=== PATIENT | female | born 1975 | race African-American/Black ===

== ENCOUNTER 2016-08-17 20:27 | Emergency (ER) | payer OTHER ==
[~2016-08-17] VITALS: Ht 167.6 cm; Wt 91.0 kg
[~2016-08-17 20:27] MED LIST: AMOXICILLIN500 MG OR; ANTIVERT25 MG PO; CIPRO500 MG OR; CIPRO500 MG PO; CIPROFLOXACN500 MG PO; DIFLUCAN150 MG OR; FLAGYL500 MG PO; HYDROCHLOR12.5 MG/CA PO; IRON325 M1 PO; LISINOP/HCTZ1 TAB PO; MONISTAT1 VA; MOTRIN800 MG PO; NO HOME MEDS; PYRIDIUM200 MG OR; ROCEPHIN 2250 MG/VIA IM; ULTRAM50 M1 PO; ULTRAM50 MG OR; ZITHROMAX500 MG PO; [UNRECOGNIZED DRUG - REMARK]
[2016-08-17] MEDS ORDERED: FIORICET PO (21:38)
[2016-08-17 21:42] VITALS: BP 150/102
[2016-08-18] MEDS ORDERED: BENTYL20 MG PO (15:05)
[2016-08-18] MEDS ORDERED: ZOFRAN ODT4 MG PO (15:05)
[2016-08-18] MEDS ORDERED: NEXIUM40 M1 PO (15:40)
== END 2016-08-17 21:47 | disposition home or self-care (01) | DRG 103 ==
LOC: ED 20:27
DX: R51 Headache (principal); F41.1 Generalized anxiety disorder; F43.0 Acute stress reaction

== ENCOUNTER 2016-08-18 12:56 | Emergency (ER) | payer OTHER ==
[~2016-08-18] VITALS: Ht 167.6 cm; Wt 91.0 kg
[~2016-08-18 12:56] MED LIST changes: +FIORICET PO
[2016-08-18 13:52] LABS: HEMATOCRIT 27.3 % (37.0-47.0); HEMOGLOBIN 8.6 g/dl (12.0-16.0); IMMATURE GRANULOCYTES 0.4 % (0.0-1.0); MEAN CELL VOLUME 64.2 fL CALC (80.0-100.0); MEAN CORPUSCULAR HGB 20.2 pG CALC (26.0-32.0); MEAN CORPUSCULAR HGB CONC 31.5 g/L CALC (32.0-36.0); NEUT# 5.53 thou/uL (2.00-7.15); RED BLOOD COUNT 4.25 mill/uL (4.20-5.60); RED CELL DISTRI WIDTH 20.6 % (11.5-15.5)
[2016-08-18 13:56] LABS: URINE BILIRUBIN - DIPSTICK NEGATIVE (NEGATIVE); URINE BLOOD DIPSTICK NEGATIVE (NEGATIVE); URINE CLARITY CLEAR; URINE COLOR YELLOW; URINE GLUCOSE - DIPSTICK NEGATIVE (NEGATIVE); URINE KETONE NEGATIVE (NEGATIVE); URINE LEUK ESTERASE NEGATIVE (NEGATIVE); URINE NITRITE - DIPSTICK NEGATIVE (Negative); URINE PH 5.5 (4.5-8.0); URINE PROTEIN - DIPSTICK NEGATIVE (NEG-TRACE); URINE SPECIFIC GRAVITY >=1.030; URINE UROBILINOGEN - DIPSTICK 0.2 E.U./dL (0.2)
[2016-08-18 14:04] LABS: ALBUMIN 4.4 g/dL (3.2-5.0); ALKALINE PHOSPHATASE 68 u/l (38-126); AMYLASE 73 u/l (30-110); ANION GAP 17 (6-22 (CALC)); BILIRUBIN, TOTAL 0.5 mg/dL (0.0-1.4); BUN 12 mg/dL (7-17); BUN/CREATININE RATIO 17 (12-20 (CALC)); CALCIUM 9.4 mg/dL (8.4-10.2); CARBON DIOXIDE 28 mmol/l (22-30); CHLORIDE 101 mmol/l (95-108); CREATININE 0.7 mg/dL (0.5-1.0); GFR > 60 ML/MIN (>=60 (CALC)); GFR FOR AFR.AMER. > 60 ML/MIN (>=60 (CALC)); GLUCOSE 91 mg/dL (65-105); LIPASE 40 u/l (23-300); POTASSIUM 4.1 mmol/l (3.5-5.1); SGOT/AST 27 u/l (14-36); SGPT/ALT 23 u/l (9-52); SODIUM 142 mmol/l (137-146); TOTAL PROTEIN 8.5 g/dL (6.3-8.2)
[2016-08-18 14:15] LABS: MYOGLOBIN 26 ng/mL (0 - 62)
[2016-08-18] MEDS ORDERED: ZOFRAN ODT4 MG PO (15:05)
[2016-08-18] MEDS ORDERED: BENTYL20 MG PO (15:05)
[2016-08-18] MEDS ORDERED: NEXIUM40 M1 PO (15:40)
[2016-08-18 15:43] VITALS: BP 164/83
== END 2016-08-18 15:51 | disposition home or self-care (01) | DRG 392 ==
LOC: ED 12:56
PROVIDERS: Emergency Medicine
DX: R10.13 Epigastric pain (principal); R11.0 Nausea
CPT/HCPCS: S0164

== ENCOUNTER 2016-08-24 03:12 | Observation (INO) | payer OTHER ==
[~2016-08-24] VITALS: Ht 167.6 cm; Wt 91.8 kg
[~2016-08-24 03:12] MED LIST changes: +BENTYL20 MG PO; +NEXIUM40 M1 PO; +ZOFRAN ODT4 MG PO
[2016-08-24 04:11] LABS: ALBUMIN 4.3 g/dL (3.2-5.0); ALKALINE PHOSPHATASE 70 u/l (38-126); ANION GAP 14 (6-22 (CALC)); BILIRUBIN, TOTAL 0.4 mg/dL (0.0-1.4); BUN 14 mg/dL (7-17); BUN/CREATININE RATIO 19 (12-20 (CALC)); CALCIUM 9.5 mg/dL (8.4-10.2); CARBON DIOXIDE 27 mmol/l (22-30); CHLORIDE 101 mmol/l (95-108); CREATININE 0.7 mg/dL (0.5-1.0); GFR > 60 ML/MIN (>=60 (CALC)); GFR FOR AFR.AMER. > 60 ML/MIN (>=60 (CALC)); GLUCOSE 99 mg/dL (65-105); POTASSIUM 4.6 mmol/l (3.5-5.1); SGOT/AST 19 u/l (14-36); SGPT/ALT 22 u/l (9-52); SODIUM 138 mmol/l (137-146); TOTAL PROTEIN 8.3 g/dL (6.3-8.2)
[2016-08-24 04:13] LABS: HEMATOCRIT 28.6 % (37.0-47.0); HEMOGLOBIN 8.9 g/dl (12.0-16.0); IMMATURE GRANULOCYTES 0.4 % (0.0-1.0); MEAN CELL VOLUME 64.6 fL CALC (80.0-100.0); MEAN CORPUSCULAR HGB 20.1 pG CALC (26.0-32.0); MEAN CORPUSCULAR HGB CONC 31.1 g/L CALC (32.0-36.0); NEUT# 5.26 thou/uL (2.00-7.15); RED BLOOD COUNT 4.43 mill/uL (4.20-5.60); RED CELL DISTRI WIDTH 20.6 % (11.5-15.5)
[2016-08-24 04:23] LABS: MYOGLOBIN 18 ng/mL (0 - 62)
[2016-08-24 07:15] VITALS: BP 147/105
[2016-08-24 07:30] VITALS: BP 156/89
[2016-08-24 07:45] VITALS: BP 149/90
[2016-08-24 08:00] VITALS: BP 134/87
[2016-08-24 10:00] VITALS: BP 141/79
[2016-08-24] MEDS ORDERED: ASPIRIN LOW DOS81 M1 PO (13:41)
== END 2016-08-24 14:14 | disposition home or self-care (01) | DRG 313 ==
LOC: ENPENDDIS → ED 03:12 → ED-I 06:30 → ED 06:46 → ICU 06:47
PROVIDERS: Emergency Medicine; Internal Medicine; ADMIT Internal Medicine; ATTEND Internal Medicine
DX: R07.89 Other chest pain (principal); I10 Essential (primary) hypertension; D50.9 Iron deficiency anemia, unspecified; F43.9 Reaction to severe stress, unspecified; Z82.49 Family history of ischemic heart disease and other diseases of the circulatory system

== ENCOUNTER 2016-12-12 20:45 | Emergency (ER) | payer OTHER ==
[~2016-12-12] VITALS: Ht 152.4 cm; Wt 94.4 kg
[~2016-12-12 20:45] MED LIST changes: +ASPIRIN LOW DOS81 M1 PO
[2016-12-12 21:22] LABS: HEMATOCRIT 25.7 % (37.0-47.0); HEMOGLOBIN 8.2 g/dl (12.0-16.0); IMMATURE GRANULOCYTES 0.4 % (0.0-1.0); MEAN CELL VOLUME 63.5 fL CALC (80.0-100.0); MEAN CORPUSCULAR HGB 20.2 pG CALC (26.0-32.0); MEAN CORPUSCULAR HGB CONC 31.9 g/L CALC (32.0-36.0); NEUT# 6.75 thou/uL (2.00-7.15); RED BLOOD COUNT 4.05 mill/uL (4.20-5.60)
[2016-12-12 21:34] LABS: ALBUMIN 4.7 g/dL (3.2-5.0); ALKALINE PHOSPHATASE 69 u/l (38-126); ANION GAP 17 (6-22 (CALC)); BILIRUBIN, TOTAL 0.5 mg/dL (0.0-1.4); BUN 12 mg/dL (7-17); BUN/CREATININE RATIO 16 (12-20 (CALC)); CALCIUM 9.7 mg/dL (8.4-10.2); CARBON DIOXIDE 28 mmol/l (22-30); CHLORIDE 98 mmol/l (95-108); CREATININE 0.8 mg/dL (0.5-1.0); GFR > 60 ML/MIN (>=60 (CALC)); GFR FOR AFR.AMER. > 60 ML/MIN (>=60 (CALC)); GLUCOSE 95 mg/dL (65-105); POTASSIUM 3.7 mmol/l (3.5-5.1); SGOT/AST 19 u/l (14-36); SGPT/ALT 24 u/l (9-52); SODIUM 138 mmol/l (137-146); TOTAL PROTEIN 8.5 g/dL (6.3-8.2)
[2016-12-12 21:46] LABS: MYOGLOBIN 30 ng/mL (0 - 62)
[2016-12-12] MEDS ORDERED: INDOCIN25 MG PO (21:59)
[2016-12-12] MEDS ORDERED: KEFLEX500 M1 PO (21:59)
[2016-12-12 22:29] VITALS: BP 114/60
== END 2016-12-12 22:40 | disposition home or self-care (01) | DRG 313 ==
LOC: ED 20:45
PROVIDERS: Emergency Medicine
DX: R07.9 Chest pain, unspecified (principal); R09.1 Pleurisy

== ENCOUNTER 2016-12-22 08:29 | Emergency (ER) | payer OTHER ==
[~2016-12-22] VITALS: Ht 167.6 cm; Wt 90.0 kg
[~2016-12-22 08:29] MED LIST changes: +INDOCIN25 MG PO; +KEFLEX500 M1 PO
[2016-12-22 09:08] LABS: URINE BILIRUBIN - DIPSTICK NEGATIVE (NEGATIVE); URINE BLOOD DIPSTICK TRACE-LYSED (NEGATIVE); URINE CLARITY CLEAR; URINE COLOR YELLOW; URINE GLUCOSE - DIPSTICK NEGATIVE (NEGATIVE); URINE KETONE NEGATIVE (NEGATIVE); URINE LEUK ESTERASE TRACE (Negative); URINE NITRITE - DIPSTICK NEGATIVE (Negative); URINE PROTEIN - DIPSTICK NEGATIVE (NEG-TRACE); URINE SPECIFIC GRAVITY 1.025; URINE UROBILINOGEN - DIPSTICK 0.2 E.U./dL (0.2)
[2016-12-22 09:44] VITALS: BP 138/75
== END 2016-12-22 09:55 | disposition home or self-care (01) | DRG 696 ==
LOC: ED 08:29
PROVIDERS: Family Medicine
DX: R30.0 Dysuria (principal); I10 Essential (primary) hypertension; B37.3 Candidiasis of vulva and vagina

== ENCOUNTER 2017-02-07 15:34 | Emergency (ER) | payer SELFPAY ==
[~2017-02-07] VITALS: Ht 167.6 cm; Wt 93.4 kg
[2017-02-07 16:21] LABS: URINE BILIRUBIN - DIPSTICK NEGATIVE (NEGATIVE); URINE BLOOD DIPSTICK TRACE-INTACT (NEGATIVE); URINE CLARITY CLEAR; URINE COLOR YELLOW; URINE GLUCOSE - DIPSTICK NEGATIVE (NEGATIVE); URINE KETONE NEGATIVE (NEGATIVE); URINE LEUK ESTERASE NEGATIVE (NEGATIVE); URINE NITRITE - DIPSTICK NEGATIVE (Negative); URINE PH 5.5 (4.5-8.0); URINE PROTEIN - DIPSTICK NEGATIVE (NEG-TRACE); URINE SPECIFIC GRAVITY >=1.030; URINE UROBILINOGEN - DIPSTICK 0.2 E.U./dL (0.2)
[2017-02-07 16:23] LABS: HCG SERUM/URINE (NEG/POS) NEGATIVE (NEGATIVE); HEMOGLOBIN 8.5 g/dl (12.0-16.0); IMMATURE GRANULOCYTES 0.5 % (0.0-1.0); MEAN CELL VOLUME 62.9 fL CALC (80.0-100.0); MEAN CORPUSCULAR HGB 19.8 pG CALC (26.0-32.0); MEAN CORPUSCULAR HGB CONC 31.5 g/L CALC (32.0-36.0); NEUT# 6.13 thou/uL (2.00-7.15); RED BLOOD COUNT 4.29 mill/uL (4.20-5.60); RED CELL DISTRI WIDTH 19.9 % (11.5-15.5)
[2017-02-07 16:37] LABS: ALBUMIN 4.6 g/dL (3.2-5.0); ALKALINE PHOSPHATASE 71 u/l (38-126); ANION GAP 18 (6-22 (CALC)); BILIRUBIN, TOTAL 0.7 mg/dL (0.0-1.4); BUN 10 mg/dL (7-17); BUN/CREATININE RATIO 13 (12-20 (CALC)); CARBON DIOXIDE 25 mmol/l (22-30); CHLORIDE 101 mmol/l (95-108); CREATININE 0.7 mg/dL (0.5-1.0); GFR > 60 ML/MIN (>=60 (CALC)); GFR FOR AFR.AMER. > 60 ML/MIN (>=60 (CALC)); GLUCOSE 89 mg/dL (65-105); POTASSIUM 4.5 mmol/l (3.5-5.1); SGOT/AST 18 u/l (14-36); SGPT/ALT 30 u/l (9-52); SODIUM 141 mmol/l (137-146); TOTAL PROTEIN 8.4 g/dL (6.3-8.2)
[2017-02-07] MEDS ORDERED: MOTRIN800 MG PO (17:46)
[2017-02-07] MEDS ORDERED: TRAMADOL HYDROC50 MG PO (17:46)
[2017-02-07] MEDS ORDERED: METRONIDAZOL500 MG PO (17:52)
[2017-02-07] MEDS ORDERED: DOXYCYC MONO100 M1 PO (17:52)
[2017-02-07 18:36] VITALS: BP 151/77
== END 2017-02-07 18:39 | disposition home or self-care (01) | DRG 759 ==
LOC: ED 15:34
PROVIDERS: Emergency Medicine
DX: N73.9 Female pelvic inflammatory disease, unspecified (principal); R10.2 Pelvic and perineal pain; R30.0 Dysuria; R50.9 Fever, unspecified

== ENCOUNTER 2017-03-05 08:36 | Emergency (ER) | payer SELFPAY ==
[~2017-03-05] VITALS: Ht 167.6 cm; Wt 92.0 kg
[~2017-03-05 08:36] MED LIST changes: +DOXYCYC MONO100 M1 PO; +METRONIDAZOL500 MG PO; +TRAMADOL HYDROC50 MG PO
[2017-03-05 09:41] LABS: HEMATOCRIT 28.1 % (37.0-47.0); HEMOGLOBIN 8.7 g/dl (12.0-16.0); IMMATURE GRANULOCYTES 0.4 % (0.0-1.0); MEAN CORPUSCULAR HGB 19.8 pG CALC (26.0-32.0); NEUT# 4.27 thou/uL (2.00-7.15); RED BLOOD COUNT 4.39 mill/uL (4.20-5.60); RED CELL DISTRI WIDTH 19.9 % (11.5-15.5)
[2017-03-05 09:44] LABS: URINE BILIRUBIN - DIPSTICK NEGATIVE (NEGATIVE); URINE BLOOD DIPSTICK TRACE-LYSED (NEGATIVE); URINE CLARITY CLEAR; URINE COLOR YELLOW; URINE GLUCOSE - DIPSTICK NEGATIVE (NEGATIVE); URINE KETONE NEGATIVE (NEGATIVE); URINE LEUK ESTERASE NEGATIVE (NEGATIVE); URINE NITRITE - DIPSTICK NEGATIVE (Negative); URINE PROTEIN - DIPSTICK NEGATIVE (NEG-TRACE); URINE SPECIFIC GRAVITY >=1.030; URINE UROBILINOGEN - DIPSTICK 0.2 E.U./dL (0.2)
[2017-03-05 10:09] LABS: ALBUMIN 4.5 g/dL (3.2-5.0); ALKALINE PHOSPHATASE 62 u/l (38-126); AMYLASE 51 u/l (30-110); ANION GAP 15 (6-22 (CALC)); BILIRUBIN, TOTAL 0.8 mg/dL (0.0-1.4); BUN 11 mg/dL (7-17); BUN/CREATININE RATIO 16 (12-20 (CALC)); CALCIUM 9.9 mg/dL (8.4-10.2); CARBON DIOXIDE 30 mmol/l (22-30); CHLORIDE 101 mmol/l (95-108); CREATININE 0.7 mg/dL (0.5-1.0); GFR > 60 ML/MIN (>=60 (CALC)); GFR FOR AFR.AMER. > 60 ML/MIN (>=60 (CALC)); GLUCOSE 96 mg/dL (65-105); LIPASE 39 u/l (23-300); SGOT/AST 17 u/l (14-36); SGPT/ALT 26 u/l (9-52); SODIUM 141 mmol/l (137-146); TOTAL PROTEIN 8.1 g/dL (6.3-8.2)
[2017-03-05] MEDS ORDERED: LORTAB 5/3255 MG PO (12:12)
[2017-03-05 13:17] VITALS: BP 142/90
== END 2017-03-05 13:20 | disposition home or self-care (01) | DRG 392 ==
LOC: ED 08:36
PROVIDERS: Emergency Medicine
DX: R10.32 Left lower quadrant pain (principal); I10 Essential (primary) hypertension

== ENCOUNTER 2017-04-11 08:15 | Emergency (ER) | payer SELFPAY ==
[~2017-04-11] VITALS: Ht 167.6 cm; Wt 90.0 kg
[~2017-04-11 08:15] MED LIST changes: +LORTAB 5/3255 MG PO
[2017-04-11 11:01] LABS: URINE BILIRUBIN - DIPSTICK NEGATIVE (NEGATIVE); URINE BLOOD DIPSTICK TRACE-INTACT (NEGATIVE); URINE CLARITY CLEAR; URINE COLOR YELLOW; URINE GLUCOSE - DIPSTICK NEGATIVE (NEGATIVE); URINE KETONE NEGATIVE (NEGATIVE); URINE LEUK ESTERASE NEGATIVE (NEGATIVE); URINE NITRITE - DIPSTICK NEGATIVE (Negative); URINE PROTEIN - DIPSTICK NEGATIVE (NEG-TRACE); URINE SPECIFIC GRAVITY 1.025; URINE UROBILINOGEN - DIPSTICK 0.2 E.U./dL (0.2)
[2017-04-11] MEDS ORDERED: FIORICET PO (11:04)
[2017-04-11 11:13] VITALS: BP 126/84
== END 2017-04-11 11:13 | disposition home or self-care (01) | DRG 103 ==
LOC: ED 08:15
PROVIDERS: Emergency Medicine
DX: G43.909 Migraine, unspecified, not intractable, without status migrainosus (principal); I10 Essential (primary) hypertension

== ENCOUNTER 2017-05-03 02:29 | Emergency (ER) | payer SELFPAY ==
[~2017-05-03] VITALS: Ht 167.6 cm; Wt 94.6 kg
[2017-05-03] MEDS ORDERED: FERRAPLUS 90 PO (02:42)
[2017-05-03] MEDS ORDERED: ULTRAM50 MG PO (03:00)
[2017-05-03 03:30] VITALS: BP 144/83
== END 2017-05-03 03:30 | disposition home or self-care (01) | DRG 558 ==
LOC: ED 02:29
DX: M65.872 Other synovitis and tenosynovitis, left ankle and foot (principal); M79.672 Pain in left foot

== ENCOUNTER 2017-05-17 11:10 | Emergency (ER) | payer SELFPAY ==
[~2017-05-17] VITALS: Ht 167.6 cm; Wt 95.0 kg
[~2017-05-17 11:10] MED LIST changes: +FERRAPLUS 90 PO; +ULTRAM50 MG PO
[2017-05-17 12:07] VITALS: BP 145/98
[2017-05-17 12:30] LABS: URINE BILIRUBIN - DIPSTICK NEGATIVE (NEGATIVE); URINE BLOOD DIPSTICK NEGATIVE (NEGATIVE); URINE COLOR YELLOW; URINE GLUCOSE - DIPSTICK NEGATIVE (NEGATIVE); URINE KETONE NEGATIVE (NEGATIVE); URINE LEUK ESTERASE NEGATIVE (NEGATIVE); URINE NITRITE - DIPSTICK NEGATIVE (Negative); URINE PROTEIN - DIPSTICK NEGATIVE (NEG-TRACE); URINE UROBILINOGEN - DIPSTICK 0.2 E.U./dL (0.2)
[2017-05-17 12:32] LABS: URINE CLARITY CLEAR
== END 2017-05-17 13:10 | disposition home or self-care (01) | DRG 761 ==
LOC: ED 11:10
PROVIDERS: Family Medicine
DX: N89.8 Other specified noninflammatory disorders of vagina (principal)

== ENCOUNTER 2017-11-07 21:13 | Emergency (ER) | payer SELFPAY ==
[~2017-11-07] VITALS: Ht 167.6 cm; Wt 98.5 kg
[2017-11-07 22:22] LABS: HEMATOCRIT 24.5 % (37.0-47.0); HEMOGLOBIN 7.8 g/dl (12.0-16.0); IMMATURE GRANULOCYTES 0.3 % (0.0-1.0); MEAN CELL VOLUME 64.3 fL CALC (80.0-100.0); MEAN CORPUSCULAR HGB 20.5 pG CALC (26.0-32.0); MEAN CORPUSCULAR HGB CONC 31.8 g/L CALC (32.0-36.0); NEUT# 5.96 thou/uL (2.00-7.15); RED BLOOD COUNT 3.81 mill/uL (4.20-5.60); RED CELL DISTRI WIDTH 20.3 % (11.5-15.5); URINE BILIRUBIN - DIPSTICK NEGATIVE (NEGATIVE); URINE BLOOD DIPSTICK NEGATIVE (NEGATIVE); URINE COLOR YELLOW; URINE GLUCOSE - DIPSTICK NEGATIVE (NEGATIVE); URINE KETONE TRACE mg/dL (NEGATIVE); URINE LEUK ESTERASE NEGATIVE (NEGATIVE); URINE NITRITE - DIPSTICK NEGATIVE (Negative); URINE PROTEIN - DIPSTICK TRACE mg/dL (NEG-TRACE)
[2017-11-07 22:23] LABS: URINE CLARITY SL CLOUDY
[2017-11-07 22:31] LABS: ALBUMIN 4.5 g/dL (3.2-5.0); ALKALINE PHOSPHATASE 68 u/l (38-126); ANION GAP 12 (6-22 (CALC)); BILIRUBIN, TOTAL 0.4 mg/dL (0.0-1.4); BUN 14 mg/dL (7-17); BUN/CREATININE RATIO 20 (12-20 (CALC)); CARBON DIOXIDE 26 mmol/l (22-30); CHLORIDE 106 mmol/l (95-108); CREATININE 0.7 mg/dL (0.5-1.0); GFR > 60 ML/MIN (>=60 (CALC)); GFR FOR AFR.AMER. > 60 ML/MIN (>=60 (CALC)); POTASSIUM 4.1 mmol/l (3.5-5.1); SGOT/AST 21 u/l (14-36); SGPT/ALT 25 u/l (9-52); SODIUM 140 mmol/l (137-146); TOTAL PROTEIN 8.5 g/dL (6.3-8.2)
[2017-11-07] MEDS ORDERED: TORADOL PO (23:04)
[2017-11-07 23:15] VITALS: BP 142/89
== END 2017-11-07 23:14 | disposition home or self-care (01) | DRG 761 ==
LOC: ED 21:13
PROVIDERS: Family Medicine
DX: D25.9 Leiomyoma of uterus, unspecified (principal); D64.9 Anemia, unspecified; I10 Essential (primary) hypertension

== ENCOUNTER 2017-11-12 09:41 | Emergency (ER) | payer SELFPAY ==
[~2017-11-12] VITALS: Ht 167.6 cm; Wt 94.5 kg
[~2017-11-12 09:41] MED LIST changes: +TORADOL PO
[2017-11-12] MEDS ORDERED: MOTRIN400 MG PO ×2 (10:06→11:05)
[2017-11-12 11:17] VITALS: BP 136/80
== END 2017-11-12 11:17 | disposition home or self-care (01) | DRG 556 ==
LOC: ED 09:41
DX: M25.571 Pain in right ankle and joints of right foot (principal); I10 Essential (primary) hypertension

== ENCOUNTER 2018-01-01 02:09 | Observation (INO) | payer SELFPAY ==
[~2018-01-01] VITALS: Ht 167.6 cm; Wt 95.7 kg
[~2018-01-01 02:09] MED LIST changes: +MOTRIN400 MG PO
[2018-01-01 03:12] LABS: IMMATURE GRANULOCYTES 0.2 % (0.0-5.0); MEAN CELL VOLUME 63.6 fL CALC (80.0-100.0); MEAN CORPUSCULAR HGB 20.4 pG CALC (26.0-32.0); NEUT# 5.12 thou/uL (2.00-7.15); RED BLOOD COUNT 3.93 mill/uL (4.20-5.60); RED CELL DISTRI WIDTH 19.7 % (11.5-15.5)
[2018-01-01 03:13] LABS: URINE BILIRUBIN - DIPSTICK NEGATIVE (NEGATIVE); URINE BLOOD DIPSTICK NEGATIVE (NEGATIVE); URINE COLOR YELLOW; URINE GLUCOSE - DIPSTICK NEGATIVE (NEGATIVE); URINE KETONE NEGATIVE (NEGATIVE); URINE LEUK ESTERASE NEGATIVE (NEGATIVE); URINE NITRITE - DIPSTICK NEGATIVE (Negative); URINE PH 5.5 (4.5-8.0); URINE PROTEIN - DIPSTICK NEGATIVE (NEG-TRACE); URINE SPECIFIC GRAVITY >=1.030; URINE UROBILINOGEN - DIPSTICK 0.2 E.U./dL (0.2)
[2018-01-01 03:19] LABS: URINE CLARITY CLEAR
[2018-01-01 03:23] LABS: ALBUMIN 4.2 g/dL (3.2-5.0); ALKALINE PHOSPHATASE 70 u/l (38-126); ANION GAP 15 (6-22 (CALC)); BILIRUBIN, TOTAL 0.3 mg/dL (0.0-1.4); BUN 15 mg/dL (7-17); BUN/CREATININE RATIO 21 (12-20 (CALC)); CARBON DIOXIDE 26 mmol/l (22-30); CHLORIDE 106 mmol/l (95-108); CREATININE 0.7 mg/dL (0.5-1.0); GFR > 60 ML/MIN (>=60 (CALC)); GFR FOR AFR.AMER. > 60 ML/MIN (>=60 (CALC)); POTASSIUM 4.2 mmol/l (3.5-5.1); SGOT/AST 21 u/l (14-36); SGPT/ALT 25 u/l (9-52); SODIUM 143 mmol/l (137-146); TOTAL PROTEIN 7.9 g/dL (6.3-8.2)
[2018-01-01 03:36] LABS: MYOGLOBIN 21 ng/mL (0 - 62)
[2018-01-01 05:00] VITALS: BP 110/53
[2018-01-01 07:00] VITALS: BP 109/55
[2018-01-01 07:23] LABS: CHOLESTEROL HDL RATIO 3.1 (<4.4 (CALC))
[2018-01-01 12:00] VITALS: BP 124/65
[2018-01-01 16:23] VITALS: BP 130/64
[2018-01-01] MEDS ORDERED: PREDNISONE10 MG PO (16:48)
== END 2018-01-01 17:45 | disposition home or self-care (01) | DRG 313 ==
LOC: ED 02:09 → ED-I 04:10 → ED 04:27 → ICU 04:28
PROVIDERS: Emergency Medicine; Internal Medicine; ADMIT Internal Medicine; ATTEND Internal Medicine
DX: R07.89 Other chest pain (principal); R68.84 Jaw pain; I10 Essential (primary) hypertension; D50.9 Iron deficiency anemia, unspecified
CPT/HCPCS: J1756

== ENCOUNTER 2018-02-14 10:41 | Emergency (ER) | payer SELFPAY ==
[~2018-02-14] VITALS: Ht 167.6 cm; Wt 91.8 kg
[~2018-02-14 10:41] MED LIST changes: +PREDNISONE10 MG PO
[2018-02-14] MEDS ORDERED: FIORICET PO (11:43)
[2018-02-14 12:00] VITALS: BP 120/54
== END 2018-02-14 12:00 | disposition home or self-care (01) | DRG 103 ==
LOC: ED 10:41
DX: R51 Headache (principal); R11.0 Nausea; H53.8 Other visual disturbances

== ENCOUNTER 2018-03-13 15:34 | Emergency (ER) | payer BC ==
[~2018-03-13] VITALS: Ht 167.6 cm; Wt 92.0 kg
[2018-03-13] MEDS ORDERED: PERCOGESI1 PO (17:21)
[2018-03-13] MEDS ORDERED: TORADOL PO (17:21)
[2018-03-13 17:46] VITALS: BP 133/72
== END 2018-03-13 17:46 | disposition home or self-care (01) | DRG 103 ==
LOC: ED 15:34
DX: R51 Headache (principal); I10 Essential (primary) hypertension

== ENCOUNTER 2018-07-19 08:46 | Emergency (ER) | payer BC ==
[~2018-07-19] VITALS: Ht 167.6 cm; Wt 94.5 kg
[~2018-07-19 08:46] MED LIST changes: +PERCOGESI1 PO
[2018-07-19] MEDS ORDERED: FLEXERIL PO (11:09)
[2018-07-19] MEDS ORDERED: TORADOL PO (11:09)
[2018-07-19 11:12] VITALS: BP 150/88
== END 2018-07-19 11:15 | disposition home or self-care (01) | DRG 103 ==
LOC: ED 08:46
DX: R51 Headache (principal); G89.29 Other chronic pain; I10 Essential (primary) hypertension

== ENCOUNTER 2018-10-05 11:07 | Emergency (ER) | payer BC ==
[~2018-10-05] VITALS: Ht 167.6 cm; Wt 97.0 kg
[~2018-10-05 11:07] MED LIST changes: +FLEXERIL PO
[2018-10-05 12:10] LABS: HEMOGLOBIN 7.8 g/dl (12.0-16.0); IMMATURE GRANULOCYTES 0.4 % (0.0-5.0); MEAN CELL VOLUME 62.8 fL CALC (80.0-100.0); MEAN CORPUSCULAR HGB 19.6 pG CALC (26.0-32.0); MEAN CORPUSCULAR HGB CONC 31.2 g/L CALC (32.0-36.0); NEUT# 4.97 thou/uL (2.00-7.15); RED BLOOD COUNT 3.98 mill/uL (4.20-5.60); RED CELL DISTRI WIDTH 20.4 % (11.5-15.5)
[2018-10-05 12:15] LABS: URINE BILIRUBIN - DIPSTICK NEGATIVE (NEGATIVE); URINE BLOOD DIPSTICK LARGE (NEGATIVE); URINE GLUCOSE - DIPSTICK NEGATIVE (NEGATIVE); URINE KETONE NEGATIVE (NEGATIVE); URINE LEUK ESTERASE NEGATIVE (NEGATIVE); URINE NITRITE - DIPSTICK NEGATIVE (Negative); URINE PROTEIN - DIPSTICK 100 mg/dL (NEG-TRACE); URINE SPECIFIC GRAVITY >=1.030; URINE UROBILINOGEN - DIPSTICK 0.2 E.U./dL (0.2)
[2018-10-05 12:16] LABS: URINE COLOR BLOODY; URINE RBC TNTC RBC/hpf (0-5); URINE SQUAMOUS EPITHELIAL CELL FEW EPI/hpf (0-FEW)
[2018-10-05 12:18] LABS: ALBUMIN 4.4 g/dL (3.2-5.0); ALKALINE PHOSPHATASE 66 u/l (38-126); ANION GAP 15 (6-22 (CALC)); BILIRUBIN, TOTAL 0.4 mg/dL (0.0-1.4); BUN 14 mg/dL (7-17); BUN/CREATININE RATIO 19 (12-20 (CALC)); CARBON DIOXIDE 25 mmol/l (22-30); CHLORIDE 104 mmol/l (95-108); CREATININE 0.7 mg/dL (0.5-1.0); GFR > 60 ML/MIN (>=60 (CALC)); GFR FOR AFR.AMER. > 60 ML/MIN (>=60 (CALC)); LIPASE 46 u/l (23-300); POTASSIUM 4.7 mmol/l (3.5-5.1); SGOT/AST 16 u/l (14-36); SODIUM 139 mmol/l (137-146); TOTAL PROTEIN 7.8 g/dL (6.3-8.2)
[2018-10-05] MEDS ORDERED: CYCLOBENZAPR5 MG PO (12:40)
[2018-10-05] MEDS ORDERED: MOTRIN400 MG PO (12:40)
[2018-10-05 13:00] VITALS: BP 133/73
== END 2018-10-05 13:00 | disposition home or self-care (01) | DRG 563 ==
LOC: ED 11:07
PROVIDERS: Family Medicine
DX: S29.012A Strain of muscle and tendon of back wall of thorax, initial encounter (principal); M54.6 Pain in thoracic spine; X50.1XXA Overexertion from prolonged static or awkward postures, initial encounter; Y92.009 Unspecified place in unspecified non-institutional (private) residence as the place of occurrence of the external cause

== ENCOUNTER 2018-12-03 02:08 | Emergency (ER) | payer BC ==
[~2018-12-03] VITALS: Ht 167.6 cm; Wt 86.4 kg
[~2018-12-03 02:08] MED LIST changes: +CYCLOBENZAPR5 MG PO
[2018-12-03 02:39] LABS: URINE BILIRUBIN - DIPSTICK NEGATIVE (NEGATIVE); URINE BLOOD DIPSTICK LARGE (NEGATIVE); URINE COLOR YELLOW; URINE GLUCOSE - DIPSTICK NEGATIVE (NEGATIVE); URINE KETONE NEGATIVE (NEGATIVE); URINE NITRITE - DIPSTICK NEGATIVE (Negative); URINE PH 5.5 (4.5-8.0); URINE PROTEIN - DIPSTICK 30 mg/dL (NEG-TRACE); URINE SPECIFIC GRAVITY 1.025
[2018-12-03 02:39] LABS: HEMATOCRIT 24.7 % (37.0-47.0); HEMOGLOBIN 7.7 g/dl (12.0-16.0); IMMATURE GRANULOCYTES 0.3 % (0.0-5.0); MEAN CELL VOLUME 62.7 fL CALC (80.0-100.0); MEAN CORPUSCULAR HGB 19.5 pG CALC (26.0-32.0); MEAN CORPUSCULAR HGB CONC 31.2 g/L CALC (32.0-36.0); NEUT# 4.35 thou/uL (2.00-7.15); RED BLOOD COUNT 3.94 mill/uL (4.20-5.60); RED CELL DISTRI WIDTH 19.6 % (11.5-15.5)
[2018-12-03 02:42] LABS: URINE LEUK ESTERASE SMALL (NEGATIVE)
[2018-12-03 02:43] LABS: URINE RBC 25-50 RBC/hpf (0-5)
[2018-12-03 02:44] LABS: URINE BACTERIA FEW hpf; URINE EPITHELIAL CELLS MODERATE EPI/hpf (0-FEW)
[2018-12-03 02:57] LABS: ALBUMIN 4.6 g/dL (3.2-5.0); ALKALINE PHOSPHATASE 74 u/l (38-126); ANION GAP 15 (6-22 (CALC)); BILIRUBIN, TOTAL 0.4 mg/dL (0.0-1.4); BUN 17 mg/dL (7-17); BUN/CREATININE RATIO 20 (12-20 (CALC)); CARBON DIOXIDE 27 mmol/l (22-30); CHLORIDE 103 mmol/l (95-108); CREATININE 0.8 mg/dL (0.5-1.0); GFR > 60 ML/MIN (>=60 (CALC)); GFR FOR AFR.AMER. > 60 ML/MIN (>=60 (CALC)); POTASSIUM 4.2 mmol/l (3.5-5.1); SGOT/AST 18 u/l (14-36); SODIUM 141 mmol/l (137-146); TOTAL PROTEIN 8.5 g/dL (6.3-8.2)
[2018-12-03] MEDS ORDERED: FIORICET PO (03:44)
[2018-12-03] MEDS ORDERED: CEPHALEXIN500 M1 PO (03:44)
[2018-12-03 03:48] VITALS: BP 147/80
== END 2018-12-03 04:01 | disposition home or self-care (01) | DRG 690 ==
LOC: ED 02:08
PROVIDERS: Emergency Medicine
DX: N39.0 Urinary tract infection, site not specified (principal); G43.909 Migraine, unspecified, not intractable, without status migrainosus; D64.9 Anemia, unspecified; I10 Essential (primary) hypertension

== ENCOUNTER 2018-12-24 02:04 | Emergency (ER) | payer SELFPAY ==
[~2018-12-24] VITALS: Ht 167.6 cm; Wt 100.0 kg
[~2018-12-24 02:04] MED LIST changes: +CEPHALEXIN500 M1 PO
[2018-12-24 02:06] VITALS: BP 156/87
[2018-12-24 02:42] LABS: URINE BILIRUBIN - DIPSTICK NEGATIVE (NEGATIVE); URINE BLOOD DIPSTICK NEGATIVE (NEGATIVE); URINE COLOR YELLOW; URINE GLUCOSE - DIPSTICK NEGATIVE (NEGATIVE); URINE KETONE NEGATIVE (NEGATIVE); URINE LEUK ESTERASE NEGATIVE (Negative); URINE NITRITE - DIPSTICK NEGATIVE (Negative); URINE PH 5.5 (4.5-8.0); URINE PROTEIN - DIPSTICK NEGATIVE (NEG-TRACE); URINE SPECIFIC GRAVITY 1.025; URINE UROBILINOGEN - DIPSTICK 0.2 E.U./dL (0.2)
[2018-12-24 02:53] LABS: URINE CLARITY CLEAR
[2018-12-24] MEDS ORDERED: AMOXICILLIN500 MG PO (02:59)
== END 2018-12-24 03:10 | disposition home or self-care (01) | DRG 153 ==
LOC: ED 02:04
PROVIDERS: Emergency Medicine
DX: J02.9 Acute pharyngitis, unspecified (principal); I10 Essential (primary) hypertension

== ENCOUNTER 2019-03-10 23:06 | Emergency (ER) | payer SELFPAY ==
[~2019-03-10] VITALS: Ht 167.6 cm; Wt 96.0 kg
[~2019-03-10 23:06] MED LIST changes: +AMOXICILLIN500 MG PO
[2019-03-10 23:55] LABS: HEMATOCRIT 24.2 % (37.0-47.0); HEMOGLOBIN 7.4 g/dl (12.0-16.0); IMMATURE GRANULOCYTES 0.6 % (0.0-5.0); MEAN CELL VOLUME 61.7 fL CALC (80.0-100.0); MEAN CORPUSCULAR HGB 18.9 pG CALC (26.0-32.0); MEAN CORPUSCULAR HGB CONC 30.6 g/L CALC (32.0-36.0); RED BLOOD COUNT 3.92 mill/uL (4.20-5.60); RED CELL DISTRI WIDTH 19.5 % (11.5-15.5)
[2019-03-10 23:57] LABS: URINE BILIRUBIN - DIPSTICK NEGATIVE (NEGATIVE); URINE BLOOD DIPSTICK NEGATIVE (NEGATIVE); URINE COLOR YELLOW; URINE GLUCOSE - DIPSTICK NEGATIVE (NEGATIVE); URINE KETONE NEGATIVE (NEGATIVE); URINE LEUK ESTERASE NEGATIVE (NEGATIVE); URINE NITRITE - DIPSTICK NEGATIVE (Negative); URINE PH 7.5 (4.5-8.0); URINE PROTEIN - DIPSTICK NEGATIVE (NEG-TRACE); URINE SPECIFIC GRAVITY 1.015; URINE UROBILINOGEN - DIPSTICK 0.2 E.U./dL (0.2)
[2019-03-11 00:14] LABS: ALBUMIN 4.5 g/dL (3.2-5.0); ALKALINE PHOSPHATASE 70 u/l (38-126); ANION GAP 14 (6-22 (CALC)); BUN 14 mg/dL (7-17); BUN/CREATININE RATIO 19 (12-20 (CALC)); CARBON DIOXIDE 24 mmol/l (22-30); CHLORIDE 103 mmol/l (95-108); CREATININE 0.7 mg/dL (0.5-1.0); GFR > 60 ML/MIN (>=60 (CALC)); GFR FOR AFR.AMER. > 60 ML/MIN (>=60 (CALC)); POTASSIUM 4.3 mmol/l (3.5-5.1); SGOT/AST 18 u/l (14-36); SODIUM 137 mmol/l (137-146); TOTAL PROTEIN 8.3 g/dL (6.3-8.2)
[2019-03-11 00:16] LABS: BILIRUBIN, TOTAL 0.7 mg/dL (0.0-1.4)
[2019-03-11 01:00] VITALS: BP 146/69
[2019-03-11] MEDS ORDERED: ONDANSETRON4 MG PO (01:30)
[2019-03-11] MEDS ORDERED: TRAMADOL HYDROC50 MG PO (01:30)
== END 2019-03-11 01:45 | disposition home or self-care (01) | DRG 392 ==
LOC: ED 23:06
DX: R10.32 Left lower quadrant pain (principal); R11.0 Nausea; I10 Essential (primary) hypertension; D64.9 Anemia, unspecified

== ENCOUNTER 2019-03-24 00:30 | Observation (INO) | payer SELFPAY ==
[2019-03-24] VITALS (10 sets, daily range): BP systolic 95–131; BP diastolic 52–81
[~2019-03-24] VITALS: Ht 165.1 cm; Wt 94.2 kg
[~2019-03-24 00:30] MED LIST changes: +ONDANSETRON4 MG PO
--- NOTE | 2019-03-24 00:32 | NUR ---
TO ROOM 10 VIA W/C
--- NOTE | 2019-03-24 01:10 | NUR ---
MEDICATION GIVEN RX-TOLERATED WELL
[2019-03-24 01:19] LABS: HEMATOCRIT 22.9 % (37.0-47.0); IMMATURE GRANULOCYTES 0.4 % (0.0-5.0); MEAN CELL VOLUME 62.4 fL CALC (80.0-100.0); MEAN CORPUSCULAR HGB 18.8 pG CALC (26.0-32.0); MEAN CORPUSCULAR HGB CONC 30.1 g/L CALC (32.0-36.0); NEUT# 5.17 thou/uL (2.00-7.15); RED BLOOD COUNT 3.67 mill/uL (4.20-5.60); RED CELL DISTRI WIDTH 19.2 % (11.5-15.5)
[2019-03-24 01:27] LABS: HEMOGLOBIN 6.9 g/dl (12.0-16.0)
[2019-03-24 01:38] LABS: ALBUMIN 4.2 g/dL (3.2-5.0); ALKALINE PHOSPHATASE 58 u/l (38-126); BUN 11 mg/dL (7-17); BUN/CREATININE RATIO 14 (12-20 (CALC)); CHLORIDE 101 mmol/l (95-108); CREATININE 0.8 mg/dL (0.5-1.0); GFR > 60 ML/MIN (>=60 (CALC)); GFR FOR AFR.AMER. > 60 ML/MIN (>=60 (CALC)); SGOT/AST 16 u/l (14-36); SODIUM 138 mmol/l (137-146)
[2019-03-24 01:50] LABS: MYOGLOBIN 23 ng/mL (0 - 62)
[2019-03-24 01:53] LABS: ANION GAP 11 (6-22 (CALC)); BILIRUBIN, TOTAL 0.3 mg/dL (0.0-1.4); CARBON DIOXIDE 29 mmol/l (22-30); POTASSIUM 3.4 mmol/l (3.5-5.1)
--- NOTE | 2019-03-24 02:00 | NUR ---
BEDRESTING. ALERT. AGREED TO ADMISSION
--- NOTE | 2019-03-24 02:55 | NUR ---
TO MS VIA W/C
[2019-03-24 03:08] LABS: URINE BILIRUBIN - DIPSTICK NEGATIVE (NEGATIVE); URINE BLOOD DIPSTICK TRACE-INTACT (NEGATIVE); URINE COLOR YELLOW; URINE GLUCOSE - DIPSTICK NEGATIVE (NEGATIVE); URINE KETONE NEGATIVE (NEGATIVE); URINE LEUK ESTERASE NEGATIVE (NEGATIVE); URINE NITRITE - DIPSTICK NEGATIVE (Negative); URINE PH 6.5 (4.5-8.0); URINE PROTEIN - DIPSTICK NEGATIVE (NEG-TRACE); URINE UROBILINOGEN - DIPSTICK 0.2 E.U./dL (0.2)
--- NOTE | 2019-03-24 03:14 | NUR ---
PT ARRIVED TO MED-SURE UNIT VIA WC ACCOMPANIED BY ED NURSE. PT APPEARS TO BE IN STABLE CONDITION. V/S OBTAINED, AIDE IN W/PT.
--- NOTE | 2019-03-24 03:35 | NUR ---
V/S ASSESSED FOR ADMINISTRATION OF PRBC AND IVF NS RUNNING TO #20LAC/SITE APPEARS HEALTHY.
--- NOTE | 2019-03-24 03:54 | NUR ---
FIRST UNIT OF PRBC BEGAN AT THIS TIME. PT HAS BEEN INFORMED OF POSSIBLE REACTION SYMPTOMS AND WHAT TO WATCH FOR AND REPORT. WILL STAY WITH PT FOR FIRST 15 MINUTES.
--- NOTE | 2019-03-24 04:12 | NUR ---
PT V/S ASSESSED, PT APPEARS TO BE STABLE AND RESTING. WILL FOLLOW-UP W/V/S PER PROTOCOL
--- NOTE | 2019-03-24 04:54 | NUR ---
PT SLEEPING, V/S ASSESSED/PT STABLE. NO S/O DISTRESS. PRBC RUNNING TO 20LAC.
--- NOTE | 2019-03-24 05:52 | NUR ---
PRBC RUNNING AT THIS TIME. NO S/O DISTRESS. PT IS SLEEPING.
--- NOTE | 2019-03-24 06:15 | NUR ---
PRBC RUNNING, NEARING COMPLETION AT THIS TIME. PT IS SLEEPING, NO S/O DISTRESS. CALL LIGHT NEXT TO HAND.
--- NOTE | 2019-03-24 07:32 | NUR ---
FIRST UNIT OF PRBC COMPLETE AT THIS TIME. PT TOLERATED WELL. DENIES ANY NEEDS.
--- NOTE | 2019-03-24 07:35 | NUR ---
REPORT RECEIVED FROM LAKSHMI NDIAYE. PT RESTING IN BED SEMI FOWLERS WITH EYES CLOSED; AWAKENS TO VERBAL STIMULI. DENIES PAIN. NO S/S OF TRANSFUSION REACTION AFTER FIRST UNIT OF BLOOD COMPLETED. RESPIRATIONS EVEN AND UNLABORED ON ROOM AIR. VSS. PLAN OF CARE REVIEWED. PT ENCOURAGED TO VERALIZE CONCERNS. STATES UNDERSTANDING. SAFETY MEASURES IN PLACE. CALL LIGHT WITHIN REACH.
--- NOTE | 2019-03-24 08:38 | NUR ---
SECOND UNIT OF PRBC'S INFUSING AT THIS TIME. VSS. PT C/O MILD HEADACHE; COOL CLOTH APPLIED TO FOREHEAD. PT REMINDED OF S/S OF TRASFUSION REACTION. NO REQUESTS OR CONCERNS AT THIS TIME.
[2019-03-24 08:51] LABS: ANION GAP 13 (6-22 (CALC)); BUN 10 mg/dL (7-17); BUN/CREATININE RATIO 15 (12-20 (CALC)); CARBON DIOXIDE 26 mmol/l (22-30); CHLORIDE 103 mmol/l (95-108); CREATININE 0.6 mg/dL (0.5-1.0); GFR > 60 ML/MIN (>=60 (CALC)); GFR FOR AFR.AMER. > 60 ML/MIN (>=60 (CALC)); SODIUM 138 mmol/l (137-146)
[2019-03-24 08:54] LABS: POTASSIUM 4.3 mmol/l (3.5-5.1)
--- NOTE | 2019-03-24 10:06 | NUR ---
BLOOD TRANSFUSION CONTINUES WITHOUT DIFFICULTY; IV SITE APPEARS HEALTHY AND PATENT. NO CHANGES IN PT CONDITION. NO REQUESTS OR COCERNS AT THIS TIME. VSS. CALL LIGHT WITHIN REACH.
--- NOTE | 2019-03-24 10:50 | NUR ---
TRANSFUSION COMPLETED; PT TOLERATED WELL. HEADACHE PERSISTS AND PT REQUESTING MEDICATION.
[2019-03-24 11:18] LABS: HEMATOCRIT 27.7 % (37.0-47.0); HEMOGLOBIN 8.7 g/dl (12.0-16.0); IMMATURE GRANULOCYTES 0.4 % (0.0-5.0); MEAN CORPUSCULAR HGB 20.9 pG CALC (26.0-32.0); MEAN CORPUSCULAR HGB CONC 31.4 g/L CALC (32.0-36.0); NEUT# 4.8 thou/uL (2.00-7.15); RED BLOOD COUNT 4.17 mill/uL (4.20-5.60); RED CELL DISTRI WIDTH 23.6 % (11.5-15.5)
--- NOTE | 2019-03-24 11:22 | NUR ---
PT C/O NAUSEA AND EMESIS X 1 AFTER EATING LUNCH; STATES THAT SHE FEELS BETTER NOW AND HEADAHCE HAS IMPROVED AFTER EMESIS; NEW ORDERS FOR TYLENOL AND ZOFRAN.
[2019-03-24 11:36] LABS: MEAN CELL VOLUME 66.4 fL CALC (80.0-100.0)
--- NOTE | 2019-03-24 12:24 | NUR ---
DR. YOO AND RACHAEL STEWART AT BEDSIDE.
[2019-03-24] MEDS ORDERED: FERROUS SULF325 M3 PO (13:50)
--- NOTE | 2019-03-24 16:00 | NUR ---
Discharge instructions given. Patient verbalizes understanding of same. Discharged in stable condition via Wheelchair to Home with family. All belongings sent with pt.
[2019-03-25 03:59] LABS: HEMOGLOBIN 9.1 g/dl (12.0-16.0)
[2019-05-20] MEDS ORDERED: NAPROXEN500 MG PO (00:21)
== END 2019-03-24 16:26 | disposition home or self-care (01) | DRG 313 ==
LOC: ED 00:30 → ED-I 02:16 → ED 02:51 → MS2 02:52
PROVIDERS: Emergency Medicine; Internal Medicine; ADMIT Internal Medicine; ATTEND Internal Medicine
PROC: 30233N1 Transfusion of Nonautologous Red Blood Cells into Peripheral Vein, Percutaneous Approach (ICD-10-PCS; principal; 2019-03-24)
PROC: 30233N1 Transfusion of Nonautologous Red Blood Cells into Peripheral Vein, Percutaneous Approach (ICD-10-PCS; 2019-03-24)
DX: R07.2 Precordial pain (principal); D50.9 Iron deficiency anemia, unspecified; I10 Essential (primary) hypertension; E87.6 Hypokalemia; D25.9 Leiomyoma of uterus, unspecified
CPT/HCPCS: G0378; J1756; P9016

== ENCOUNTER 2019-05-19 | Emergency (ER) | payer SELFPAY ==
[~2019-05-19] MED LIST changes: +FERROUS SULF325 M3 PO
[2019-05-19 23:54] LABS: HEMATOCRIT 29.6 % (37.0-47.0); HEMOGLOBIN 9.6 g/dl (12.0-16.0); IMMATURE GRANULOCYTES 0.4 % (0.0-5.0); MEAN CELL VOLUME 71.2 fL CALC (80.0-100.0); MEAN CORPUSCULAR HGB 23.1 pG CALC (26.0-32.0); MEAN CORPUSCULAR HGB CONC 32.4 g/L CALC (32.0-36.0); NEUT# 5.54 thou/uL (2.00-7.15); RED BLOOD COUNT 4.16 mill/uL (4.20-5.60); RED CELL DISTRI WIDTH 23.7 % (11.5-15.5)
[2019-05-20 00:10] LABS: ALBUMIN 4.7 g/dL (3.2-5.0); ALKALINE PHOSPHATASE 65 u/l (38-126); BILIRUBIN, TOTAL 0.4 mg/dL (0.0-1.4); BUN 15 mg/dL (7-17); BUN/CREATININE RATIO 19 (12-20 (CALC)); CARBON DIOXIDE 29 mmol/l (22-30); CHLORIDE 98 mmol/l (95-108); CREATININE 0.8 mg/dL (0.5-1.0); GFR > 60 ML/MIN (>=60 (CALC)); GFR FOR AFR.AMER. > 60 ML/MIN (>=60 (CALC)); SGOT/AST 19 u/l (14-36); SODIUM 138 mmol/l (137-146); TOTAL PROTEIN 8.8 g/dL (6.3-8.2)
[2019-05-20 00:13] LABS: ANION GAP 14 (6-22 (CALC)); POTASSIUM 3.4 mmol/l (3.5-5.1)
[2019-05-20] MEDS ORDERED: NAPROXEN500 MG PO ×2 (00:21)
[2019-05-20 00:22] LABS: MYOGLOBIN 37 ng/mL (0 - 62)
== END 2019-05-20 01:45 | disposition home or self-care (01) | DRG 313 ==
PROVIDERS: Emergency Medicine
DX: R07.89 Other chest pain (principal); I10 Essential (primary) hypertension

== ENCOUNTER 2019-12-27 05:09 | Emergency (ER) | payer SELFPAY ==
[~2019-12-27] VITALS: Ht 167.6 cm; Wt 96.0 kg
[~2019-12-27 05:09] MED LIST changes: +NAPROXEN500 MG PO
[2019-12-27 06:08] LABS: HEMATOCRIT 25.3 % (37.0-47.0); IMMATURE GRANULOCYTES 0.7 % (0.0-5.0); MEAN CORPUSCULAR HGB 18.4 pG CALC (26.0-32.0); MEAN CORPUSCULAR HGB CONC 29.6 g/dL CAL (32.0-36.0); NEUT# 5.52 thou/uL (2.00-7.15); RED BLOOD COUNT 4.07 mill/uL (4.20-5.60); RED CELL DISTRI WIDTH 20.1 % (11.5-15.5)
[2019-12-27 06:10] LABS: HEMOGLOBIN 7.5 g/dl (12.0-16.0); MEAN CELL VOLUME 62.2 fL CALC (80.0-100.0)
[2019-12-27 06:18] LABS: D-DIMER 0.51 mg/L (0.19-0.60)
[2019-12-27 06:24] LABS: ALBUMIN 4.6 g/dL (3.2-5.0); ALKALINE PHOSPHATASE 78 u/l (38-126); AMYLASE 102 u/l (30-110); BILIRUBIN, TOTAL 0.3 mg/dL (0.0-1.4); BUN 12 mg/dL (7-17); BUN/CREATININE RATIO 17 (12-20 (CALC)); CARBON DIOXIDE 25 mmol/l (22-30); CHLORIDE 104 mmol/l (95-108); CREATININE 0.7 mg/dL (0.5-1.0); GFR > 60 ML/MIN (>=60 (CALC)); GFR FOR AFR.AMER. > 60 ML/MIN (>=60 (CALC)); LIPASE 58 u/l (23-300); SGOT/AST 30 u/l (14-36); SODIUM 136 mmol/l (137-146); TOTAL PROTEIN 8.3 g/dL (6.3-8.2)
[2019-12-27 06:26] LABS: ANION GAP 11 (6-22 (CALC)); POTASSIUM 4.2 mmol/l (3.5-5.1)
[2019-12-27 06:31] LABS: PROTHROMBIN TIME 9.8 SECONDS (9.0-12.5)
[2019-12-27 06:37] LABS: MYOGLOBIN 31 ng/mL (0 - 62)
[2019-12-27 07:25] LABS: URINE BILIRUBIN - DIPSTICK NEGATIVE (NEGATIVE); URINE BLOOD DIPSTICK NEGATIVE (NEGATIVE); URINE COLOR YELLOW; URINE GLUCOSE - DIPSTICK NEGATIVE (NEGATIVE); URINE KETONE NEGATIVE (NEGATIVE); URINE LEUK ESTERASE NEGATIVE (NEGATIVE); URINE NITRITE - DIPSTICK NEGATIVE (Negative); URINE PH 6.5 (4.5-8.0); URINE PROTEIN - DIPSTICK NEGATIVE (NEG-TRACE); URINE SPECIFIC GRAVITY 1.025; URINE UROBILINOGEN - DIPSTICK 0.2 E.U./dL (0.2)
[2019-12-27] MEDS ORDERED: PROTONIX40 M2 PO ×2 (08:56)
[2019-12-27 09:22] VITALS: BP 148/77
== END 2019-12-27 09:22 | disposition home or self-care (01) | DRG 156 ==
LOC: ED 05:09
PROVIDERS: Emergency Medicine
DX: R07.0 Pain in throat (principal); M54.2 Cervicalgia; K21.9 Gastro-esophageal reflux disease without esophagitis; D64.9 Anemia, unspecified; I10 Essential (primary) hypertension
CPT/HCPCS: Q9967; S0164

== ENCOUNTER 2020-02-14 11:05 | Emergency (ER) | payer BC ==
[~2020-02-14] VITALS: Ht 167.6 cm; Wt 97.7 kg
[~2020-02-14 11:05] MED LIST changes: +PROTONIX40 M2 PO
[2020-02-14] MEDS ORDERED: ATIVAN1 MG PO (11:17)
[2020-02-14] MEDS ORDERED: FERRAPLUS 90 PO (11:26)
[2020-02-14 11:35] LABS: URINE BILIRUBIN - DIPSTICK NEGATIVE (NEGATIVE); URINE BLOOD DIPSTICK NEGATIVE (NEGATIVE); URINE COLOR YELLOW; URINE GLUCOSE - DIPSTICK NEGATIVE (NEGATIVE); URINE KETONE NEGATIVE (NEGATIVE); URINE LEUK ESTERASE NEGATIVE (NEGATIVE); URINE NITRITE - DIPSTICK NEGATIVE (Negative); URINE PROTEIN - DIPSTICK NEGATIVE (NEG-TRACE); URINE SPECIFIC GRAVITY >=1.030; URINE UROBILINOGEN - DIPSTICK 0.2 E.U./dL (0.2)
[2020-02-14 11:45] LABS: HEMATOCRIT 23.3 % (37.0-47.0); HEMOGLOBIN 7.1 g/dl (12.0-16.0); IMMATURE GRANULOCYTES 0.3 % (0.0-5.0); MEAN CELL VOLUME 60.5 fL CALC (80.0-100.0); MEAN CORPUSCULAR HGB 18.4 pG CALC (26.0-32.0); MEAN CORPUSCULAR HGB CONC 30.5 g/dL CAL (32.0-36.0); NEUT# 4.14 thou/uL (2.00-7.15); RED BLOOD COUNT 3.85 mill/uL (4.20-5.60); RED CELL DISTRI WIDTH 20.8 % (11.5-15.5)
[2020-02-14 11:59] LABS: ALBUMIN 4.2 g/dL (3.2-5.0); ALKALINE PHOSPHATASE 64 u/l (38-126); AMYLASE 59 u/l (30-110); ANION GAP 12 (6-22 (CALC)); BUN 9 mg/dL (7-17); BUN/CREATININE RATIO 13 (12-20 (CALC)); CARBON DIOXIDE 24 mmol/l (22-30); CHLORIDE 103 mmol/l (95-108); CREATININE 0.7 mg/dL (0.5-1.0); GFR > 60 ML/MIN (>=60 (CALC)); GFR FOR AFR.AMER. > 60 ML/MIN (>=60 (CALC)); LIPASE 44 u/l (23-300); POTASSIUM 4.5 mmol/l (3.5-5.1); SGOT/AST 16 u/l (14-36); SODIUM 135 mmol/l (137-146); TOTAL PROTEIN 7.7 g/dL (6.3-8.2)
[2020-02-14 12:00] LABS: BILIRUBIN, TOTAL 0.5 mg/dL (0.0-1.4)
[2020-02-14] MEDS ORDERED: ULTRAM50 M1 PO (13:13)
[2020-02-14 13:30] VITALS: BP 136/74
[2020-02-14 13:35] VITALS: BP 134/78
[2020-02-14 13:40] VITALS: BP 136/78
[2020-02-14 13:45] VITALS: BP 129/71
[2020-02-14 15:08] VITALS: BP 147/69
== END 2020-02-14 15:12 | disposition home or self-care (01) | DRG 761 ==
LOC: ED 11:05
PROVIDERS: Emergency Medicine
PROC: 30233N1 Transfusion of Nonautologous Red Blood Cells into Peripheral Vein, Percutaneous Approach (ICD-10-PCS; principal; 2020-02-14)
DX: D25.9 Leiomyoma of uterus, unspecified (principal); D64.9 Anemia, unspecified; I10 Essential (primary) hypertension; K21.9 Gastro-esophageal reflux disease without esophagitis; F41.9 Anxiety disorder, unspecified
CPT/HCPCS: P9016; Q9967

== ENCOUNTER 2020-05-30 14:26 | Emergency (ER) | payer BC ==
[~2020-05-30] VITALS: Ht 167.6 cm; Wt 100.0 kg
[~2020-05-30 14:26] MED LIST changes: +ATIVAN1 MG PO
[2020-05-30] MEDS ORDERED: FERR SULFATE325 MG PO (16:13)
[2020-05-30] MEDS ORDERED: LISINOP/HCTZ1 TAB PO (16:14)
[2020-05-30] MEDS ORDERED: PAROXETINE30 MG PO (16:14)
[2020-05-30 17:50] VITALS: BP 145/73
== END 2020-05-30 17:50 | disposition home or self-care (01) | DRG 103 ==
LOC: ED 14:26
DX: R51.9 Headache, unspecified (principal); I10 Essential (primary) hypertension; F41.9 Anxiety disorder, unspecified; K21.9 Gastro-esophageal reflux disease without esophagitis; W22.8XXA Striking against or struck by other objects, initial encounter

== ENCOUNTER 2020-09-14 00:57 | Emergency (ER) | payer BC ==
[~2020-09-14] VITALS: Ht 167.6 cm; Wt 99.0 kg
[~2020-09-14 00:57] MED LIST changes: +FERR SULFATE325 MG PO; +PAROXETINE30 MG PO
[2020-09-14 04:39] VITALS: BP 108/65
== END 2020-09-14 05:20 | disposition home or self-care (01) | DRG 556 ==
LOC: ED 00:57
DX: M79.672 Pain in left foot (principal); I10 Essential (primary) hypertension; K21.9 Gastro-esophageal reflux disease without esophagitis; F41.9 Anxiety disorder, unspecified

== ENCOUNTER 2020-11-08 21:59 | Emergency (ER) | payer BC ==
[~2020-11-08] VITALS: Ht 167.6 cm; Wt 100.0 kg
[2020-11-08 23:00] LABS: HEMOGLOBIN 7.7 g/dl (12.0-16.0); IMMATURE GRANULOCYTES 0.6 % (0.0-5.0); MEAN CELL VOLUME 62.5 fL CALC (80.0-100.0); MEAN CORPUSCULAR HGB 19.3 pG CALC (26.0-32.0); MEAN CORPUSCULAR HGB CONC 30.8 g/dL CAL (32.0-36.0); NEUT# 5.24 thou/uL (2.00-7.15); RED CELL DISTRI WIDTH 19.7 % (11.5-15.5)
[2020-11-08 23:03] LABS: URINE BILIRUBIN - DIPSTICK NEGATIVE (NEGATIVE); URINE BLOOD DIPSTICK LARGE (NEGATIVE); URINE COLOR RED; URINE GLUCOSE - DIPSTICK NEGATIVE (NEGATIVE); URINE KETONE TRACE mg/dL (NEGATIVE); URINE LEUK ESTERASE MODERATE (NEGATIVE); URINE NITRITE - DIPSTICK POSITIVE (Negative); URINE PROTEIN - DIPSTICK >=300 mg/dL (NEG-TRACE); URINE SPECIFIC GRAVITY 1.025
[2020-11-08 23:12] LABS: URINE BACTERIA FEW hpf; URINE RBC >100 RBC/hpf (0-5); URINE SQUAMOUS EPITHELIAL CELL FEW EPI/hpf (0-FEW)
[2020-11-08 23:22] LABS: ALBUMIN 4.2 g/dL (3.2-5.0); ALKALINE PHOSPHATASE 64 u/l (38-126); BUN 17 mg/dL (7-17); BUN/CREATININE RATIO 21 (12-20 (CALC)); CHLORIDE 99 mmol/l (95-108); CREATININE 0.8 mg/dL (0.5-1.0); GFR > 60 ML/MIN (>=60 (CALC)); GFR FOR AFR.AMER. > 60 ML/MIN (>=60 (CALC)); SODIUM 138 mmol/l (137-146); TOTAL PROTEIN 8.2 g/dL (6.3-8.2)
[2020-11-08 23:24] LABS: ANION GAP 14 (6-22 (CALC)); BILIRUBIN, TOTAL 0.2 mg/dL (0.0-1.4); CARBON DIOXIDE 29 mmol/l (22-30); POTASSIUM 3.5 mmol/l (3.5-5.1); SGOT/AST 35 u/l (14-36)
[2020-11-08 23:34] LABS: MYOGLOBIN 18 ng/mL (0 - 62)
[2020-11-09] MEDS ORDERED: NAPROXEN500 MG PO (02:21)
[2020-11-09] MEDS ORDERED: KEFLEX500 MG PO (02:21)
[2020-11-09 02:38] VITALS: BP 123/63
--- NOTE | 2020-11-13 14:53 | NUR ---
FINAL RESULTS CALLED TO . NO NEW ORDERS
== END 2020-11-09 02:50 | disposition home or self-care (01) | DRG 313 ==
LOC: ED 21:59
PROVIDERS: Emergency Medicine
DX: R07.89 Other chest pain (principal); N39.0 Urinary tract infection, site not specified; I10 Essential (primary) hypertension; D64.9 Anemia, unspecified; F41.9 Anxiety disorder, unspecified; K21.9 Gastro-esophageal reflux disease without esophagitis

== ENCOUNTER 2021-05-31 21:51 | Emergency (ER) | payer BC ==
[~2021-05-31 21:51] MED LIST changes: +KEFLEX500 MG PO
[2021-05-31 23:32] LABS: HEMATOCRIT 29.5 % (37.0-47.0); IMMATURE GRANULOCYTES 0.5 % (0.0-5.0); MEAN CORPUSCULAR HGB 24.6 pG CALC (26.0-32.0); MEAN CORPUSCULAR HGB CONC 33.2 g/dL CAL (32.0-36.0); NEUT# 5.88 thou/uL (2.00-7.15); RED BLOOD COUNT 3.98 mill/uL (4.20-5.60); RED CELL DISTRI WIDTH 17.8 % (11.5-15.5)
[2021-05-31 23:33] LABS: HEMOGLOBIN 9.8 g/dl (12.0-16.0); MEAN CELL VOLUME 74.1 fL CALC (80.0-100.0)
[2021-05-31 23:51] LABS: ALBUMIN 4.4 g/dL (3.2-5.0); BUN 17 mg/dL (7-17); BUN/CREATININE RATIO 22 (12-20 (CALC)); CARBON DIOXIDE 32 mmol/l (22-30); CREATININE 0.8 mg/dL (0.5-1.0); GFR > 60 ML/MIN (>=60 (CALC)); GFR FOR AFR.AMER. > 60 ML/MIN (>=60 (CALC)); POTASSIUM 3.3 mmol/l (3.5-5.1); SGOT/AST 17 u/l (14-36); TOTAL PROTEIN 8.6 g/dL (6.3-8.2)
[2021-05-31 23:52] LABS: ALKALINE PHOSPHATASE 67 u/l (38-126)
[2021-05-31 23:53] LABS: ANION GAP 10 (6-22 (CALC)); BILIRUBIN, TOTAL 0.4 mg/dL (0.0-1.4); CHLORIDE 101 mmol/l (95-108); D-DIMER 0.27 mg/L (0.19-0.60); SODIUM 140 mmol/l (137-146)
[2021-05-31 23:57] LABS: ACT PARTIAL THROMBO TIME 24.6 SECONDS (20.0-32.5); INTERNATIONAL NORMALIZED RATIO 1.1 RATIO (0.7-1.3)
[2021-06-01 00:03] LABS: MYOGLOBIN 27 ng/mL (0 - 62)
[2021-06-01] MEDS ORDERED: TORADOL PO (00:54)
== END 2021-06-01 01:15 | disposition home or self-care (01) | DRG 313 ==
LOC: ED 21:51
PROVIDERS: Family Medicine
DX: R07.89 Other chest pain (principal); I10 Essential (primary) hypertension; K21.9 Gastro-esophageal reflux disease without esophagitis; F41.9 Anxiety disorder, unspecified

== ENCOUNTER 2021-08-02 07:29 | Emergency (ER) | payer BC ==
[~2021-08-02] VITALS: Ht 167.6 cm; Wt 100.0 kg
[2021-08-02] VITALS (15 sets, daily range): BP systolic 93–138; BP diastolic 41–83
[2021-08-02 09:08] LABS: HEMATOCRIT 26.2 % (37.0-47.0); HEMOGLOBIN 8.6 g/dl (12.0-16.0); IMMATURE GRANULOCYTES 0.5 % (0.0-5.0); MEAN CORPUSCULAR HGB 22.8 pG CALC (26.0-32.0); MEAN CORPUSCULAR HGB CONC 32.8 g/dL CAL (32.0-36.0); NEUT# 4.61 thou/uL (2.00-7.15); RED BLOOD COUNT 3.78 mill/uL (4.20-5.60); RED CELL DISTRI WIDTH 17.9 % (11.5-15.5)
[2021-08-02 09:11] LABS: MEAN CELL VOLUME 69.3 fL CALC (80.0-100.0)
[2021-08-02 09:27] LABS: ALBUMIN 4.1 g/dL (3.2-5.0); CHLORIDE 103 mmol/l (95-108); POTASSIUM 3.9 mmol/l (3.5-5.1); SODIUM 139 mmol/l (137-146)
[2021-08-02 09:53] LABS: ALKALINE PHOSPHATASE 59 u/l (38-126); ANION GAP 11 (6-22 (CALC)); BILIRUBIN, TOTAL 0.4 mg/dL (0.0-1.4); BUN 18 mg/dL (7-17); BUN/CREATININE RATIO 25 (12-20 (CALC)); CARBON DIOXIDE 29 mmol/l (22-30); CREATININE 0.7 mg/dL (0.5-1.0); GFR > 60 ML/MIN (>=60 (CALC)); GFR FOR AFR.AMER. > 60 ML/MIN (>=60 (CALC)); LIPASE 31 u/l (23-300); MAGNESIUM 2.2 mg/dL (1.6-2.3); SGOT/AST 22 u/l (14-36); TOTAL PROTEIN 7.7 g/dL (6.3-8.2)
== END 2021-08-02 12:12 | disposition home or self-care (01) | DRG 313 ==
LOC: ED 07:29
PROVIDERS: Internal Medicine
DX: R07.89 Other chest pain (principal); I10 Essential (primary) hypertension; K21.9 Gastro-esophageal reflux disease without esophagitis; F41.9 Anxiety disorder, unspecified

== ENCOUNTER 2021-09-02 23:18 | Emergency (ER) | payer BC ==
[~2021-09-02] VITALS: Ht 167.6 cm; Wt 92.0 kg
[2021-09-02 23:32] VITALS: BP 138/84
[2021-09-03 01:26] LABS: URINE BILIRUBIN - DIPSTICK NEGATIVE (NEGATIVE); URINE BLOOD DIPSTICK TRACE-INTACT (NEGATIVE); URINE COLOR YELLOW; URINE GLUCOSE - DIPSTICK NEGATIVE (NEGATIVE); URINE KETONE NEGATIVE (NEGATIVE); URINE LEUK ESTERASE NEGATIVE (NEGATIVE); URINE PROTEIN - DIPSTICK NEGATIVE (NEG-TRACE); URINE SPECIFIC GRAVITY >=1.030; URINE UROBILINOGEN - DIPSTICK 0.2 E.U./dL (0.2)
[2021-09-03 01:36] LABS: URINE NITRITE - DIPSTICK NEGATIVE (Negative)
[2021-09-03] MEDS ORDERED: CYCLOBENZAPRINE10 MG PO (02:37)
[2021-09-03] MEDS ORDERED: NAPROXEN500 MG PO (02:37)
[2021-09-03 04:30] VITALS: BP 130/72
== END 2021-09-03 04:30 | disposition home or self-care (01) | DRG 552 ==
LOC: ED 23:18
PROVIDERS: Emergency Medicine
DX: M47.22 Other spondylosis with radiculopathy, cervical region (principal); I10 Essential (primary) hypertension; K21.9 Gastro-esophageal reflux disease without esophagitis; F41.9 Anxiety disorder, unspecified

== ENCOUNTER 2022-04-24 03:32 | Emergency (ER) | payer BC ==
[~2022-04-24] VITALS: Ht 167.6 cm; Wt 98.0 kg
[~2022-04-24 03:32] MED LIST changes: +CYCLOBENZAPRINE10 MG PO
[2022-04-24 03:38] VITALS: BP 146/81
[2022-04-24 03:46] VITALS: BP 132/75
[2022-04-24 04:01] VITALS: BP 151/57
[2022-04-24 04:16] VITALS: BP 127/73
[2022-04-24 04:46] VITALS: BP 132/71
[2022-04-24 05:00] VITALS: BP 132/71
== END 2022-04-24 05:10 | disposition home or self-care (01) | DRG 153 ==
LOC: ED 03:32
DX: J03.80 Acute tonsillitis due to other specified organisms (principal); I10 Essential (primary) hypertension; K21.9 Gastro-esophageal reflux disease without esophagitis; F41.9 Anxiety disorder, unspecified
CPT/HCPCS: J0561

== ENCOUNTER 2022-05-11 16:28 | Emergency (ER) | payer BC ==
[~2022-05-11] VITALS: Ht 167.6 cm; Wt 94.0 kg
[2022-05-11 17:52] VITALS: BP 131/75
[2022-05-11 18:00] VITALS: BP 152/81
[2022-05-11 18:16] LABS: BASO% 0.2 % (0-3); EOS% 0.8 % (0-8); HEMATOCRIT 25.5 % (37.0-47.0); HEMOGLOBIN 8.2 g/dl (12.0-16.0); IMMATURE GRANULOCYTES 0.2 % (0.0-5.0); LYMPH% 24.5 % (15-41); MEAN CORPUSCULAR HGB 20.7 pG CALC (26.0-32.0); MEAN CORPUSCULAR HGB CONC 32.2 g/dL CAL (32.0-36.0); MONO% 7.2 % (2-13); NEUT# 5.6 thou/uL (2.00-7.15); NEUT% 67.1 % (42-76); RED BLOOD COUNT 3.96 mill/uL (4.20-5.60); RED CELL DISTRI WIDTH 19.2 % (11.5-15.5)
[2022-05-11 18:20] LABS: URINE BILIRUBIN - DIPSTICK NEGATIVE (NEGATIVE); URINE BLOOD DIPSTICK LARGE (NEGATIVE); URINE GLUCOSE - DIPSTICK NEGATIVE (NEGATIVE); URINE KETONE TRACE mg/dL (NEGATIVE); URINE LEUK ESTERASE NEGATIVE (NEGATIVE); URINE PH 6.5 (4.5-8.0); URINE PROTEIN - DIPSTICK 100 mg/dL (NEG-TRACE); URINE SPECIFIC GRAVITY >=1.030
[2022-05-11 18:22] LABS: MEAN CELL VOLUME 64.4 fL CALC (80.0-100.0)
[2022-05-11 18:23] LABS: URINE COLOR RED; URINE NITRITE - DIPSTICK NEGATIVE (Negative); URINE RBC TNTC RBC/hpf (0-5); URINE WBC 0-2 WBC/hpf (0-5)
[2022-05-11 18:28] LABS: ALBUMIN 4.4 g/dL (3.2-5.0); ALKALINE PHOSPHATASE 50 u/l (38-126); ANION GAP 8 (6-22 (CALC)); BILIRUBIN, TOTAL 0.4 mg/dL (0.0-1.4); BUN 12 mg/dL (7-17); BUN/CREATININE RATIO 16 (12-20 (CALC)); CARBON DIOXIDE 32 mmol/l (22-30); CHLORIDE 103 mmol/l (95-108); CREATININE 0.7 mg/dL (0.5-1.0); GFR FOR AFR.AMER. > 60 ML/MIN (>=60 (CALC)); GFR OTHER RACES > 60 ML/MIN (>=60 (CALC)); LIPASE 39 u/l (23-300); POTASSIUM 3.8 mmol/l (3.5-5.1); SGOT/AST 18 u/l (14-36); SODIUM 139 mmol/l (137-146); TOTAL PROTEIN 8.1 g/dL (6.3-8.2)
[2022-05-11 18:45] LABS: BETA-HCG, QUANT(RESULT NUMBER) <2 mIU/mL
[2022-05-11] MEDS ORDERED: NAPROXEN500 MG PO (20:16)
[2022-05-11] MEDS ORDERED: PROVERA10 MG PO (20:16)
[2022-05-11] MEDS ORDERED: CHROMAGEN1 CAP PO (20:16)
[2022-05-11 20:51] VITALS: BP 152/81
== END 2022-05-11 21:02 | disposition home or self-care (01) | DRG 812 ==
LOC: ED 16:28
PROVIDERS: Nurse Practitioner
DX: D50.9 Iron deficiency anemia, unspecified (principal); D25.9 Leiomyoma of uterus, unspecified; N83.202 Unspecified ovarian cyst, left side

== ENCOUNTER 2022-07-09 20:27 | Emergency (ER) | payer BC ==
[2022-07-09] VITALS (11 sets, daily range): BP systolic 118–140; BP diastolic 66–101
[~2022-07-09] VITALS: Ht 167.6 cm; Wt 95.0 kg
[~2022-07-09 20:27] MED LIST changes: +CHROMAGEN1 CAP PO; +PROVERA10 MG PO
[2022-07-09 21:17] LABS: BASO% 0.4 % (0-3); EOS% 1.3 % (0-8); HEMOGLOBIN 7.2 g/dl (12.0-16.0); IMMATURE GRANULOCYTES 0.4 % (0.0-5.0); LYMPH% 30.2 % (15-41); MEAN CELL VOLUME 63.2 fL CALC (80.0-100.0); MEAN CORPUSCULAR HGB 18.9 pG CALC (26.0-32.0); NEUT# 5.63 thou/uL (2.00-7.15); NEUT% 61.7 % (42-76); RED BLOOD COUNT 3.8 mill/uL (4.20-5.60); RED CELL DISTRI WIDTH 20.3 % (11.5-15.5)
[2022-07-09 21:24] LABS: ALBUMIN 4.6 g/dL (3.2-5.0); ALKALINE PHOSPHATASE 62 u/l (38-126); ANION GAP 12 (6-22 (CALC)); BILIRUBIN, TOTAL 0.3 mg/dL (0.02-1.3); BUN 12 mg/dL (7-17); BUN/CREATININE RATIO 16 (12-20 (CALC)); CARBON DIOXIDE 26 mmol/l (22-30); CHLORIDE 103 mmol/l (95-108); CREATININE 0.7 mg/dL (0.5-1.0); GFR FOR AFR.AMER. > 60 ML/MIN (>=60 (CALC)); GFR OTHER RACES > 60 ML/MIN (>=60 (CALC)); LIPASE 60 u/l (23-300); SGOT/AST 30 u/l (14-36); SODIUM 136 mmol/l (137-146); TOTAL PROTEIN 8.4 g/dL (6.3-8.2)
[2022-07-09] MEDS ORDERED: TORADOL PO (22:10)
[2022-07-09] MEDS ORDERED: CHROMAGEN1 CAP PO (22:10)
== END 2022-07-09 22:56 | disposition home or self-care (01) | DRG 313 ==
LOC: ED 20:27
PROVIDERS: Family Medicine
DX: R07.89 Other chest pain (principal); D50.9 Iron deficiency anemia, unspecified; I10 Essential (primary) hypertension

== ENCOUNTER 2022-10-16 23:36 | Emergency (ER) | payer BC ==
[~2022-10-16] VITALS: Ht 167.6 cm; Wt 94.0 kg
[2022-10-16 23:46] VITALS: BP 130/65
[2022-10-16] MEDS ORDERED: VITAMIN D PO (23:53)
[2022-10-17 00:59] LABS: URINE BILIRUBIN - DIPSTICK NEGATIVE (NEGATIVE); URINE BLOOD DIPSTICK NEGATIVE (NEGATIVE); URINE COLOR YELLOW; URINE GLUCOSE - DIPSTICK NEGATIVE (NEGATIVE); URINE KETONE NEGATIVE (NEGATIVE); URINE LEUK ESTERASE NEGATIVE (NEGATIVE); URINE NITRITE - DIPSTICK NEGATIVE (Negative); URINE PH 5.5 (4.5-8.0); URINE PROTEIN - DIPSTICK NEGATIVE (NEG-TRACE); URINE UROBILINOGEN - DIPSTICK 0.2 E.U./dL (0.2)
[2022-10-17] MEDS ORDERED: METRONIDAZO1 XX (02:21)
[2022-10-17] MEDS ORDERED: VIBRAMYCIN100 M2 PO (02:21)
[2022-10-17 03:15] VITALS: BP 122/79
== END 2022-10-17 03:15 | disposition home or self-care (01) | DRG 759 ==
LOC: ED 23:36
PROVIDERS: Emergency Medicine
DX: N76.0 Acute vaginitis (principal); I10 Essential (primary) hypertension; K21.9 Gastro-esophageal reflux disease without esophagitis; F41.9 Anxiety disorder, unspecified

== ENCOUNTER 2023-06-13 16:13 | Emergency (ER) | payer BC ==
[2023-06-13] VITALS (11 sets, daily range): BP systolic 114–152; BP diastolic 44–91
[~2023-06-13] VITALS: Ht 167.6 cm; Wt 88.0 kg
[~2023-06-13 16:13] MED LIST changes: +DIFLUCAN100 M1 PO; +METHOCARBAMOL500 MG PO; +METRONIDAZO1 XX; +VIBRAMYCIN100 M2 PO; +VITAMIN D PO
[2023-06-13 17:56] LABS: BASO% 0.7 % (0-3); HEMATOCRIT 23.1 % (37.0-47.0); IMMATURE GRANULOCYTES 0.2 % (0.0-5.0); LYMPH% 39.1 % (15-41); MEAN CELL VOLUME 61.6 fL CALC (80.0-100.0); MEAN CORPUSCULAR HGB 18.7 pG CALC (26.0-32.0); MEAN CORPUSCULAR HGB CONC 30.3 g/dL CAL (32.0-36.0); MONO% 6.9 % (2-13); NEUT# 3.18 thou/uL (2.00-7.15); NEUT% 52.1 % (42-76); RED BLOOD COUNT 3.75 mill/uL (4.20-5.60); RED CELL DISTRI WIDTH 20.8 % (11.5-15.5)
[2023-06-13 18:21] LABS: ALBUMIN 4.5 g/dL (3.2-5.0); ALKALINE PHOSPHATASE 58 u/l (38-126); ANION GAP 12 (6-22 (CALC)); BILIRUBIN, TOTAL 0.3 mg/dL (0.02-1.3); BUN 13 mg/dL (7-17); BUN/CREATININE RATIO 14 (12-20 (CALC)); CARBON DIOXIDE 31 mmol/l (22-30); CHLORIDE 104 mmol/l (95-108); CREATININE 0.9 mg/dL (0.5-1.0); GFR FOR AFR.AMER. > 60 ML/MIN (>=60 (CALC)); GFR OTHER RACES > 60 ML/MIN (>=60 (CALC)); POTASSIUM 3.8 mmol/l (3.5-5.1); SGOT/AST 22 u/l (14-36); SODIUM 142 mmol/l (137-146)
[2023-06-13] MEDS ORDERED: FERROUS SULFATE 325 MG/TAB PO ONE (18:30)
== END 2023-06-13 19:54 | disposition home or self-care (01) | DRG 812 ==
LOC: ED 16:13
PROVIDERS: Family Medicine
DX: D50.9 Iron deficiency anemia, unspecified (principal); I10 Essential (primary) hypertension; F41.9 Anxiety disorder, unspecified; K21.9 Gastro-esophageal reflux disease without esophagitis

== ENCOUNTER 2023-06-21 07:55 | Emergency (ER) | payer BC ==
[~2023-06-21] VITALS: Ht 167.6 cm; Wt 85.4 kg
[2023-06-21] VITALS (8 sets, daily range): BP systolic 102–127; BP diastolic 49–77
== END 2023-06-21 10:00 | disposition home or self-care (01) | DRG 556 ==
LOC: ED 07:55
DX: M25.552 Pain in left hip (principal); M79.672 Pain in left foot; I10 Essential (primary) hypertension; K21.9 Gastro-esophageal reflux disease without esophagitis; F41.9 Anxiety disorder, unspecified

== ENCOUNTER 2023-10-27 19:27 | Emergency (ER) | payer SELFPAY ==
[~2023-10-27] VITALS: Ht 167.6 cm; Wt 87.0 kg
[~2023-10-27 19:27] MED LIST changes: +METRONIDAZOLE500 MG PO
[2023-10-27 20:04] LABS: URINE BILIRUBIN - DIPSTICK Negative (NEGATIVE); URINE BLOOD DIPSTICK Negative (NEGATIVE); URINE GLUCOSE - DIPSTICK Negative (NEGATIVE); URINE KETONE Negative (NEGATIVE); URINE LEUK ESTERASE Negative (NEGATIVE); URINE NITRITE - DIPSTICK Negative (Negative); URINE PH 5.5 (4.5-8.0); URINE UROBILINOGEN - DIPSTICK 0.2 E.U./dL (0.2)
[2023-10-27 20:05] LABS: URINE COLOR Yellow; URINE SPECIFIC GRAVITY 1.025
[2023-10-27 20:06] LABS: URINE PROTEIN - DIPSTICK Negative (NEG-TRACE)
[2023-10-27] MEDS ORDERED: METRONIDAZOLE500 MG PO (21:02)
[2023-10-27] MEDS ORDERED: metroNIDAZOLE 500 MG/TAB PO ONE (21:05)
[2023-10-27 21:21] VITALS: BP 144/88
== END 2023-10-27 21:21 | disposition home or self-care (01) | DRG 759 ==
LOC: ED 19:27
PROVIDERS: Family Medicine
DX: N76.0 Acute vaginitis (principal); I10 Essential (primary) hypertension; K21.9 Gastro-esophageal reflux disease without esophagitis

== ENCOUNTER 2023-12-07 19:08 | Emergency (ER) | payer SELFPAY ==
[~2023-12-07] VITALS: Ht 167.6 cm; Wt 68.0 kg
[2023-12-07 19:22] VITALS: BP 147/82
[2023-12-07 19:44] LABS: URINE BILIRUBIN - DIPSTICK Negative (NEGATIVE); URINE BLOOD DIPSTICK Negative (NEGATIVE); URINE GLUCOSE - DIPSTICK Negative (NEGATIVE); URINE KETONE Negative (NEGATIVE); URINE LEUK ESTERASE Negative (NEGATIVE); URINE NITRITE - DIPSTICK Negative (Negative); URINE PROTEIN - DIPSTICK Negative (NEG-TRACE); URINE SPECIFIC GRAVITY 1.025
[2023-12-07 19:46] LABS: URINE COLOR Yellow
[2023-12-07] MEDS ORDERED: METRONIDAZOLE500 MG PO (20:28)
[2023-12-07] MEDS ORDERED: metroNIDAZOLE 500 MG/TAB PO ONE (20:30)
[2023-12-07 20:33] VITALS: BP 125/94
[2023-12-07 20:34] VITALS: BP 126/63
[2023-12-07 20:37] VITALS: BP 126/63
== END 2023-12-07 20:35 | disposition home or self-care (01) | DRG 759 ==
LOC: ED 19:08
PROVIDERS: Family Medicine
DX: N76.0 Acute vaginitis (principal); I10 Essential (primary) hypertension; K21.9 Gastro-esophageal reflux disease without esophagitis; F41.9 Anxiety disorder, unspecified

== ENCOUNTER 2024-02-06 07:02 | Emergency (ER) | payer SELFPAY ==
[~2024-02-06] VITALS: Ht 167.6 cm; Wt 86.0 kg
[2024-02-06 07:17] VITALS: BP 122/65
[2024-02-06 07:30] VITALS: BP 122/73
[2024-02-06 07:44] LABS: URINE BILIRUBIN - DIPSTICK Negative (NEGATIVE); URINE BLOOD DIPSTICK Trace-lysed (NEGATIVE); URINE GLUCOSE - DIPSTICK Negative (NEGATIVE); URINE KETONE Negative (NEGATIVE); URINE LEUK ESTERASE Negative (NEGATIVE); URINE NITRITE - DIPSTICK Negative (Negative); URINE PH 5.5 (4.5-8.0); URINE PROTEIN - DIPSTICK Negative (NEG-TRACE); URINE SPECIFIC GRAVITY >=1.030; URINE UROBILINOGEN - DIPSTICK 0.2 E.U./dL (0.2)
[2024-02-06 07:45] LABS: URINE COLOR Yellow
[2024-02-06 08:00] VITALS: BP 117/70
[2024-02-06] MEDS ORDERED: MACROBID100 M1 PO (08:10)
[2024-02-06] MEDS ORDERED: PYRIDIUM200 MG PO (08:10)
[2024-02-06 08:20] VITALS: BP 117/70
== END 2024-02-06 08:20 | disposition home or self-care (01) | DRG 696 ==
LOC: ED 07:02
PROVIDERS: Family Medicine
DX: R35.0 Frequency of micturition (principal); R39.15 Urgency of urination; R30.0 Dysuria; I10 Essential (primary) hypertension; F41.9 Anxiety disorder, unspecified; K21.9 Gastro-esophageal reflux disease without esophagitis

== ENCOUNTER 2024-03-26 08:06 | Emergency (ER) | payer SELFPAY ==
[~2024-03-26] VITALS: Ht 167.6 cm; Wt 83.0 kg
[~2024-03-26 08:06] MED LIST changes: +MACROBID100 M1 PO; +PYRIDIUM200 MG PO
[2024-03-26 08:18] VITALS: BP 150/89
[2024-03-26 08:32] VITALS: BP 128/104
[2024-03-26 08:49] LABS: BASO% 0.6 % (0-3); HEMATOCRIT 24.8 % (37.0-47.0); HEMOGLOBIN 7.5 g/dl (12.0-16.0); IMMATURE GRANULOCYTES 0.2 % (0.0-5.0); LYMPH% 31.6 % (15-41); MEAN CELL VOLUME 63.1 fL CALC (80.0-100.0); MEAN CORPUSCULAR HGB 19.1 pG CALC (26.0-32.0); MEAN CORPUSCULAR HGB CONC 30.2 g/dL CAL (32.0-36.0); MONO% 6.3 % (2-13); NEUT# 2.96 thou/uL (2.00-7.15); NEUT% 60.3 % (42-76); RED BLOOD COUNT 3.93 mill/uL (4.20-5.60); RED CELL DISTRI WIDTH 19.6 % (11.5-15.5)
[2024-03-26 09:00] VITALS: BP 146/74
[2024-03-26 09:01] LABS: ALBUMIN 4.2 g/dL (3.2-5.0); BILIRUBIN, TOTAL 0.5 mg/dL (0.02-1.3); CREATININE 0.7 mg/dL (0.5-1.0); POTASSIUM 4.1 mmol/l (3.5-5.1); TOTAL PROTEIN 7.5 g/dL (6.3-8.2)
[2024-03-26] MEDS ORDERED: DiphenhydrAMINE HCL 50 MG/ML SDV IV ONE (09:05)
[2024-03-26] MEDS ORDERED: KETOROLAC TROMETHAMINE 30 MG/ML SDV IV ONE (09:05)
[2024-03-26] MEDS ORDERED: METOCLOPRAMIDE HCL 10 MG/2 ML SDV IV ONE (09:05)
[2024-03-26] MEDS ORDERED: SODIUM CHLORIDE 0.9% 1,000 ML IV ONE (09:10)
[2024-03-26 09:30] VITALS: BP 148/90
[2024-03-26 11:13] VITALS: BP 139/80
[2024-03-26] MEDS ORDERED: ZYRTEC10 M5 PO (11:22)
[2024-03-26 11:31] VITALS: BP 143/79
== END 2024-03-26 11:52 | disposition home or self-care (01) | DRG 103 ==
LOC: ED 08:06
PROVIDERS: Family Medicine
DX: R51.9 Headache, unspecified (principal); T78.40XA Allergy, unspecified, initial encounter; I10 Essential (primary) hypertension; K21.9 Gastro-esophageal reflux disease without esophagitis; F41.9 Anxiety disorder, unspecified; X58.XXXA Exposure to other specified factors, initial encounter